=== PATIENT | female | born 1995 | race Caucasian/White ===

== ENCOUNTER 2020-11-17 17:01 | Emergency (ER) | payer SELFPAY ==
--- NOTE | ~2020-11-17 | XR_ITS ---
XR abdomen/kub 1V 11/17/2020 19:10 INDICATION: Abdominal pain and cramping TECHNIQUE: KUB COMPARISON: None FINDINGS: Bowel gas pattern is normal. There is no evidence of free air, mass, organomegaly, ascites or obstruction. No abnormal calculi are seen. The bones appear intact. IMPRESSION: 1: No acute abdominal abnormality identified. Reviewed, dictated and finalized at location A. TUFTER
[2020-11-17 17:12] VITALS: BP 114/69; PULSE 78; RESP 16; TEMP 36.4; O2SAT 100
[2020-11-17 17:31] LABS: Basophils Absolute Auto 0.1 K/mm3 (0.0-0.1); Basophils Percent Auto 0.6 % (0.2-1.2); Eosinophils Absolute Auto 0.1 K/mm3 (0-0.3); Eosinophils Percent Auto 0.9 % (0-4.4); Hematocrit 39.1 % (37.0-47.0); Hemoglobin 12.7 g/dL (12.0-15.0); Immature Granulocyte Absolute 0.01 K/mm3 (0.00-0.031); Immature Granulocyte Percent A 0.1 % (0-0.5); Lymphocytes Absolute Auto 1.54 K/mm3 (0.9-3.2); Lymphocytes Percent Auto 19.4 % (18.3-44.2); Mean Corpuscular HGB Conc 32.5 g/dl (32-36); Mean Corpuscular Hemoglobin 27.9 pg (26-34); Mean Corpuscular Volume 85.9 fl (80-100); Mean Platelet Volume 8.9 fl (7.4-10.4); Monocytes Absolute Auto 0.6 K/mm3 (0.1-0.6); Monocytes Percent Auto 8.1 % (2.6-8.5); Neutrophils Absolute Auto 5.6 K/mm3 (1.3-6.7); Neutrophils Percent Auto 70.9 % (45.5-73.1); Platelet Count Result 226 k/mm3 (150-375); Red Blood Count 4.55 M/mm3 (4.2-5.4); Red Cell Distribution Width 13.2 % (11.5-14.5); White Blood Count 7.9 K/mm3 (4.5-10.0)
[2020-11-17 17:35] LABS: Add Urine Microscopic? YES; Appearance Urine Cloudy (Clear); Bacteria Urine Trace /hpf; Bilirubin Urine Negative (Negative); Blood Urine Negative (Negative); Color Urine Straw (Yellow); Glucose Urine UA Negative (Negative); Ketones Urine Negative (Negative); Leukocyte Esterase Ur 1+ LEU/UL (Negative); Mucus Urine Rare /lpf; Nitrate Urine Negative (Negative); Protein Urine Negative (Negative); RBC Urine 0-2 /hpf (0-2); Squamous Epithelial Cell Urine Many /hpf (Few); Urobilinogen Urine Negative mg/dL (<2.0); WBC Urine 0-3 /hpf
[2020-11-17 17:46] LABS: Alanine Aminotransferase 18 U/L (4-35); Albumin Level 4.2 g/dL (3.5-5.1); Alkaline Phosphatase 87 U/L (38-126); Anion Gap 6 mmol/L (8-16); Aspartate Amino Transferase 21 U/L (14-36); Bilirubin,Total 0.2 mg/dL (0.2-1.3); Blood Urea Nitrogen 10 mg/dL (7-17); Carbon Dioxide 28 mmol/L (22-30); Chloride 106 mmol/L (98-107); Estimated CRCL calculation 83 ml/min; Estimated Glomerular Filt Rate > 60; Glucose 91 mg/dL (65-105); Lipase 31 U/L (23-300); Sodium 140 mmol/L (137-145)
[2020-11-17 18:45] VITALS: BP 101/60; PULSE 66; RESP 12; O2SAT 99
--- NOTE | 2020-11-17 19:15 | PC.NURSE ---
pt not in room at shift change report.
--- NOTE | 2020-11-17 19:25 | PC.NURSE ---
Checked restrooms with no answer from pt.
--- NOTE | 2020-11-17 20:07 | ED.ABDPAIN ---
HPI - Abdominal Pain General Chief Complaint: Abdominal Pain Stated Complaint: ABD CRAMPS SINCE 1600 Time Seen by Provider: 11/17/20 17:58 Source: patient Mode of arrival: ambulatory Limitations: no limitations History of Present Illness HPI narrative: Patient presents with chief complaint of crampy abdominal pain. She reports right side more than left upper back, but bilateral upper back areas that radiate down into her groin that began just prior to arrival. Patient denies dysuria or hematuria. Patient reports they are crampy in sensation. Patient denies nausea, vomiting, fever, chills, diarrhea or constipation. Patient states her last bowel movement was yesterday and was normal. Patient denies vaginal bleeding. Patient states that she could be as she is sexually active without control. Patient not take any medications Juan symptoms. Review of Systems Review of Systems: Narrative: CONSTITUTIONAL: Denies fever, chills, or sweats. EYES: Denies visual changes, redness, or discharge. ENT: Denies rhinorrhea, congestion, sore throat, or otalgia. CARDIOVASCULAR: Denies chest pain, palpitations, or edema. RESPIRATORY: Denies cough or dyspnea. GASTROINTESTINAL: Reports radiating crampy pain, denies nausea, vomiting, or diarrhea. GENITOURINARY: Denies dysuria or hematuria. SKIN: Denies rash or itching. MUSCULOSKELETAL: Denies back pain, joint pain, or myalgia. NEUROLOGIC: Denies headache, numbness, dizziness, or weakness. PSYCHIATRIC: Denies anxiety or depression. Exam Narrative: Exam Narrative: GENERAL: Well-appearing, well-nourished, and in no acute distress. HEAD: Normocephalic, atraumatic. EYES: PERRLA and EOMI. NECK: Supple. No adenopathy or masses. CHEST: Clear to auscultation. No respiratory distress. No wheezes rales or rhonchi HEART: Regular rate and rhythm. No murmur heard. Normal peripheral pulses. ABDOMEN: No CVA tenderness. Soft, nontender with palpation, nondistended, normal active bowel sounds. EXTREMITIES: Normal range of motion. No edema. SKIN: Warm, dry, no rash. NEURO: No focal deficits. Alert and oriented x3. PSYCH: Normal mood and affect. Course Vital Signs Vital signs: Vital Signs Temperature 97.5 F L 11/17/20 17:12 Pulse Rate 78 02/05/21 17:12 Respiratory Rate 16 11/17/20 17:12 Blood Pressure 114/69 11/17/20 17:12 Pulse Oximetry 100 11/17/20 17:12 Temperature 97.5 F L 11/17/20 17:12 Pulse Rate 66 11/17/20 18:45 Respiratory Rate 12 11/17/20 18:45 Blood Pressure 101/60 11/17/20 18:45 Pulse Oximetry 99 11/17/20 18:45 MDM - Abdominal Pain MDM Narrative Medical decision making narrative: Patient declined GI cocktail or Toradol. Patient's test was negative. Patient KUB and blood work is insignificant. Patient left the emergency department before for review of her imaging and reevaluate her status. Differential Diagnosis Differential diagnosis: Likely abdominal pain, acute appendicitis, calculus of kidney, constipation, diverticulitis, endometriosis, gastroenteritis, pancreatitis and small bowel obstruction Lab Data Result diagrams: 11/17/20 17:21 11/17/20 17:21 Labs: Lab Results 11/17/20 11/17/20 11/17/20 Range/Units 17:21 17:21 17:21 WBC 7.9 (4.5-10.0) K/mm3 RBC 4.55 (4.2-5.4) M/mm3 Hgb 12.7 (12.0-15.0) g/dL Hct 39.1 (37.0-47.0) % MCV 85.9 (80-100) fl MCH 27.9 (26-34) pg MCHC 32.5 (32-36) g/dl RDW 13.2 (11.5-14.5) % Plt Count 226 (150-375) k/mm3 MPV 8.9 (7.4-10.4) fl Immature Gran % (Auto) 0.1 (0-0.5) % Neut % (Auto) 70.9 (45.5-73.1) % Lymph % (Auto) 19.4 (18.3-44.2) % [place] % (Auto) 8.1 (2.6-8.5) % Eos % (Auto) 0.9 (0-4.4) % Baso % (Auto) 0.6 (0.2-1.2) % Lymph # (Auto) 1.54 (0.9-3.2) K/mm3 [place] # (Auto) 0.6 (0.1-0.6) K/mm3 Eos # (Auto) 0.1 (0-0.3) K/mm3 Baso # (Auto) 0.1 (0.0-0.1) K/mm3 Abs Immat Gran
== END 2020-11-17 19:30 | disposition left against medical advice (07) ==
PROVIDERS: Emergency Provider Emergency Medicine
DX: R10.9 Unspecified abdominal pain (principal)
CPT/HCPCS: 36415; 74018; 80053; 81001; 81025; 83690; 85025; 99283

== ENCOUNTER 2021-05-21 14:30 | Outpatient (RCR) | payer OTHER, SELFPAY ==
--- NOTE | 2021-04-24 14:38 | PTOPEVAL ---
PHYSICAL THERAPY EVALUATION AND PLAN OF CARE Thank you for referring Fe Barraza to [facility].? The patient is scheduled to be seen for therapy? 1x/week for 5 weeks. Please review, sign, date and return this plan of care ABRAHAM. I agree with and certify that the following plan of care is medically necessary. Referring Physician Date Attending Provider: Kanu Garcia Evaluation Diagnosis left distal humerus fracture Onset 03/13/2021 Subjective Information Fe fractured her elbow Query Text:As Reported By Patient/ on 03/13/2021 and subsequently Family had surgery with ORIF. Reports she has no pain and does not take pain medication. States that she just can't get the elbow to go straight. 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 Pain Score Pain Score 0: Self Report Upper Extremity Range of Motion Scapular/ Shoulder Range of Motion Left Reason Not Measured WFL/Left Elbow/Forearm Range of Motion Left Elbow Flexion - Active 127 Elbow Extension - Active -55 Wrist Range of Motion Left Reason Not Measured WNL/Left Upper Extremity Muscle Strength Testing Elbow/Forearm Left Elbow Flexion Strength 5 Normal Elbow Extension Strength 5 Normal Wrist Strength Left Wrist Flexion Strength 5 Normal Wrist Extension Strength 5 Normal Muscle Length Testing Muscle Length Testing Bicep Muscle Length (L) Moderate Tightness Tricep Muscle Length (L) Moderate Tightness Palpation thickeness noted to brachials and triceps on left elbow PT Clinical Summary Fe is a 25 yo female presenting to outpatient physical therapy following ORIF of left distal humerus. She presents today with significantly reduced left elbow ROM into flexion and extension. Supination and pronation are WNL and wrist ROM and strength are WNL. She will benefit from skilled PT to address these findings and promote optimal function and improved ROM. PT Services Indicated Yes Rehabilitation Potential Good Potential Barriers to Goal Achievements None Support Requirements For Optimal None [place] Patient/Caregiver Informed of Be
--- NOTE | 2021-05-02 09:11 | PCPTNOTE ---
Patient did not show up for scheduled appointment this date. Called Pt unable to get through, message states The caller cannot receive calls at this time. Please hang up and try again later. Attempted to call twice.
--- NOTE | 2021-05-21 16:35 | PCPTNOTE ---
Patient no showed this date. Patient was called however no answer. Left a voicemail with upcoming appointment date.
--- NOTE | 2021-05-29 14:22 | PCPTNOTE ---
Patient did not show up for scheduled appointment this date. I called to follow up with patient and she reported she had a family emergency and forgot to call but would like to reschedule this appointment. I rescheduled her for 06/04 at 1630.
--- NOTE | 2021-06-04 16:49 | PCPTNOTE ---
Patient did not show up for scheduled appointment this date.
--- NOTE | 2021-06-04 16:49 | PCPTNOTE ---
PHYSICAL THERAPY DISCHARGE NOTE Attending Provider: Kanu Garcia Patient:Fe Barraza Date of :1995 Patient has not returned for any further treatments since 05/21/2021, therefore she will be discharged at this time. Patient?s initial visit was on 04/24/2021 and had a total of 3 visits and no showed 4 visits. Thank you for referring this patient to [facility]. Please review, sign, date and return this discharge summary ABRAHAM. I have been updated about the patient's current status and I agree with discharge from the above service at this time. Referring Physician Date
== END 2021-06-05 16:02 | disposition home or self-care (01) ==
LOC: ANHPT 14:30
DX: S42.492D Other displaced fracture of lower end of left humerus, subsequent encounter for fracture with routine healing (principal)
CPT/HCPCS: 97110; 97140; 97161

== ENCOUNTER 2021-06-15 15:56 | Emergency (ER) | payer MEDICAID, SELFPAY ==
--- NOTE | ~2021-06-15 | US_ITS ---
EXAMINATION: US pelvic complete w TV DATE: 06/15/2021 18:39 INDICATION: Abnormal uterine bleeding. TECHNIQUE: Multiple transabdominal and transvaginal sonographic images of the pelvis were obtained. COMPARISON: None. FINDINGS: TRANSABDOMINAL ULTRASOUND: The uterus measures 9.5 x 4.0 x 4.6 cm. There is no free fluid in the pelvis. TRANSVAGINAL ULTRASOUND: The endometrial complex measures 5 mm in thickness. The right ovary measures 2.8 x 2.6 x 2.6 cm. The left ovary measures 4.0 x 2.3 x 3.0 cm. There is normal vascular flow in the ovaries. IMPRESSION: 1. Normal pelvis. Reviewed, dictated and finalized at location A. IMPRESSION: 1. Normal pelvis.
[2021-06-15 16:07] VITALS: BP 117/88; PULSE 66; RESP 16; TEMP 37; O2SAT 98
--- NOTE | 2021-06-15 16:38 | ED.FEMALEGU ---
HPI - Female Genitourinary General Chief complaint: Vaginal Bleeding Stated complaint: Vaginal Bleeding x4 months Time Seen by Provider: 06/15/21 16:15 Source: patient Mode of arrival: ambulatory Limitations: no limitations History of Present Illness HPI Narrative: This is a 26 year old female that presents to the ER for abnormal vaginal bleeding over the last couple months. Reports intermittent spotting that seems to be worsened after sex. She is not currently on control. She does not have an [employer]. Denies fever, abdominal/pelvic pain, vomiting, dysuria, or hematuria. Related Data Home Medications Medication Instructions Recorded Confirmed No Home Medications 06/15/21 Allergies Allergy/AdvReac Type Severity Reaction Status Date / Time No Known Allergies Allergy Verified 06/15/21 17:02 Review of Systems Review of Systems: CONSTITUTIONAL: Denies fever GASTROINTESTINAL: Denies abdominal pain, nausea, vomiting GENITOURINARY: Denies dysuria or hematuria. SKIN: Denies rash All systems reviewed & are unremarkable except as noted in HPI and below PMFSH Past Medical History Medical History (Updated 06/15/21 @ 19:25 by Marly Bella PA-C) No active medical problems Social History Social History (Updated 06/15/21 @ 17:09 by Marly Bella PA-C) Substance use: never Exam Narrative: GENERAL: Well-appearing, well-nourished, and in no acute distress. HEAD: Normocephalic, atraumatic. EYES: EOMI. CHEST: Clear to auscultation. No respiratory distress. No wheezes rales or rhonchi HEART: Regular rate and rhythm. No murmur heard. Normal peripheral pulses. ABDOMEN: Soft, nontender, nondistended, normal active bowel sounds. EXTREMITIES: Normal range of motion. No edema. SKIN: Warm, dry, no rash. NEURO: No focal deficits. Alert and oriented x3. PSYCH: Normal mood and affect PELVIC: Normal external genitalia. Normal appearing cervix. Small amount of dark red blood in the vaginal vault Course Vital Signs Vital signs: Vital Signs Temperature 98.6 F 06/15/21 16:07 Pulse Rate 66 06/15/21 16:07 Respiratory Rate 16 06/15/21 16:07 Blood Pressure 117/88 06/15/21 16:07 Pulse Oximetry 98 06/15/21 16:07 Temperature 98.6 F 06/15/21 16:07 Pulse Rate 66 06/15/21 16:07 Respiratory Rate 16 06/15/21 16:07 Blood Pressure 117/88 06/15/21 16:07 Pulse Oximetry 98 06/15/21 16:07 MDM - Female Genitourinary MDM Narrative Medical decision making narrative: Patient presents to the emergency department for abnormal uterine bleeding. She is afebrile and nontoxic-appearing. Vitals are stable. CBC is without leukocytosis. Does show normocytic anemia with hemoglobin of 11.9. Metabolic panel without concerning findings. UA with evidence of probable urinary tract infection. This will be sent for culture. Trichomonas is negative. Chlamydia and gonorrhea were sent. Bedside test is negative. Pelvic ultrasound is normal. Patient eloped after being seen by provider and before treatment plan was in place Lab Data Attestation: I reviewed the patient's lab results. Result diagrams: 06/15/21 16:44 06/15/21 16:44 Labs: Lab Results 06/15/21 06/15/21 06/15/21 Range/Units 16:44 16:44 16:44 WBC 8.0 (4.5-10.0) K/mm3 RBC 4.40 (4.2-5.4) M/mm3 Hgb 11.9 L (12.0-15.0) g/dL Hct 37.7 (37.0-47.0) % MCV 85.7 (80-100) fl MCH 27.0 (26-34) pg MCHC 31.6 L (32-36) g/dl RDW 13.7 (11.5-14.5) % Plt Count 261 (150-375) k/mm3 MPV 9.8 (7.4-10.4) fl Immature Gran % (Auto) 0.1 (0-0.5) % Neut % (Auto) 72.0 (45.5-73.1) % Lymph % (Auto) 20.3 (18.3-44.2) % [place] % (Auto) 6.3 (2.6-8.5) % Eos % (Auto) 0.4 (0-4.4) % Baso % (Auto) 0.9 (0.2-1.2) % Lymph # (Auto) 1.62 (0.9-3.2) K/mm3 [place] # (Auto) 0.5 (0.1-0.6) K/mm3 Eos # (Auto) 0.0 (0-0.3) K/mm3 Baso # (Auto) 0.1 (0.0-0.1) K/mm3
[2021-06-15 16:54] LABS: Basophils Absolute Auto 0.1 K/mm3 (0.0-0.1); Basophils Percent Auto 0.9 % (0.2-1.2); Eosinophils Percent Auto 0.4 % (0-4.4); Hematocrit 37.7 % (37.0-47.0); Hemoglobin 11.9 g/dL (12.0-15.0); Immature Granulocyte Absolute 0.01 K/mm3 (0.00-0.031); Immature Granulocyte Percent A 0.1 % (0-0.5); Lymphocytes Absolute Auto 1.62 K/mm3 (0.9-3.2); Lymphocytes Percent Auto 20.3 % (18.3-44.2); Mean Corpuscular HGB Conc 31.6 g/dl (32-36); Mean Corpuscular Volume 85.7 fl (80-100); Mean Platelet Volume 9.8 fl (7.4-10.4); Monocytes Absolute Auto 0.5 K/mm3 (0.1-0.6); Monocytes Percent Auto 6.3 % (2.6-8.5); Neutrophils Absolute Auto 5.8 K/mm3 (1.3-6.7); Platelet Count Result 261 k/mm3 (150-375); Red Cell Distribution Width 13.7 % (11.5-14.5)
[2021-06-15 17:02] LABS: INR 0.9; Partial Thromboplastin Time 26.2 SECONDS (22.3-36.8); Prothrombin Time 12.5 Seconds (11.1-14.7)
[2021-06-15 17:08] LABS: Alanine Aminotransferase 15 U/L (4-35); Albumin Level 4.1 g/dL (3.5-5.1); Alkaline Phosphatase 67 U/L (38-126); Anion Gap 5 mmol/L (8-16); Aspartate Amino Transferase 23 U/L (14-36); Bilirubin,Total 0.3 mg/dL (0.2-1.3); Blood Urea Nitrogen 9 mg/dL (7-17); Calcium 8.8 mg/dL (8.4-10.2); Carbon Dioxide 27 mmol/L (22-30); Chloride 106 mmol/L (98-107); Estimated CRCL calculation 65 ml/min; Estimated Glomerular Filt Rate > 60; Glucose 86 mg/dL (65-110); Potassium 3.7 mmol/L (3.4-5.0); Sodium 138 mmol/L (137-145)
[2021-06-15 17:46] LABS: Add Urine Microscopic? YES; Appearance Urine Clear (Clear); Bilirubin Urine Negative (Negative); Blood Urine 2+ (Negative); Color Urine Yellow (Yellow); Glucose Urine UA Negative (Negative); Ketones Urine Negative (Negative); Leukocyte Esterase Ur 2+ LEU/UL (Negative); Mucus Urine Rare /lpf; Nitrate Urine Negative (Negative); Protein Urine Negative (Negative); Specific Grav Ur 1.017 (1.001-1.035); Squamous Epithelial Cell Urine Few /hpf (Few); Urobilinogen Urine Negative mg/dL (<2.0); WBC Urine 31-50 /hpf
--- NOTE | 2021-06-15 18:19 | PC.NURSE ---
Patient to ultrasound.
--- NOTE | 2021-06-15 18:35 | PC.NURSE ---
Patient walked out of ED without difficulty and in no distress.
--- NOTE | 2021-06-15 18:40 | PC.NURSE ---
ED triage nurse saw patient ambulating out of ED with no difficulty and with all belongings. OSWALD Luke notified.
== END 2021-06-15 18:45 | disposition left against medical advice (07) ==
PROVIDERS: Physician Assistant; Emergency Provider Emergency Medicine
DX: N93.8 Other specified abnormal uterine and vaginal bleeding (principal)
CPT/HCPCS: 36415; 76830; 76856; 80053; 81001; 81025; 85025; 85610; 85730; 86850; 86900; 86901; 87070; 87077; 87086; 87088; 87491; 87591; 87808; 99284